=== PATIENT | female | born 1955 | race Caucasian/White ===

== ENCOUNTER 2021-03-14 10:48 | Day surgery (SDC) | payer MEDICARE ==
[~2021-03-14] VITALS: Ht 165.1 cm; Wt 57.1 kg
[2021-03-14] MEDS ORDERED: Norco 5-325 Ta1 EACH (12:07)
[2021-03-14] MEDS ORDERED: HYDR10 (12:08)
[2021-03-14] MEDS ORDERED: IBUP600 (12:08)
[2021-03-14] MEDS ORDERED: AMLO10 (12:08)
[2021-03-14] MEDS ORDERED: AVALIDE 300-121 EACH (12:09)
--- NOTE | 2021-03-14 13:32 | NUR ---
03/14/21 1332 Michelle Grey BUPIVACAINE 0.5 % 150 MG MIXED WITH 0.15 MG EPI PER ORDER TO CONSTITUTE BUPIVACAINE 0.5% 1:200,000 FOR INJECTION AT OPSITE BY DR ROB. 30 MLS OF THIS INJECTED.
--- NOTE | 2021-03-14 15:23 | NUR ---
03/14/21 1523 Julia Ramirez CHART STATES OXYCODONE ALLERGY. PT STATES SHE HAS TAKEN PERCOCET WITHOUT PROBLEMS. OK RECEIVING PO PERCOCET AND OK WITH PRESCRIPTION FOR PERCOCET FOR HOME.
== END 2021-03-14 15:42 | disposition home or self-care (01) ==
LOC: ORSCSDS 10:48
PROVIDERS: Podiatrist Foot & Ankle Surgery
PROC: 0QSJ04Z Reposition Right Fibula with Internal Fixation Device, Open Approach (ICD-10-PCS; principal; 2021-03-14 12:30)
DX: S82.852A Displaced trimalleolar fracture of left lower leg, initial encounter for closed fracture (principal); F41.9 Anxiety disorder, unspecified; I10 Essential (primary) hypertension; Z79.899 Other long term (current) drug therapy
CPT/HCPCS: A9270; C1713; J0690; J1100; J1885; J2250; J2405; J2704; J3010; J7120

== ENCOUNTER 2022-10-12 20:34 | Emergency (ER) | payer MEDICARE, OTHER ==
[~2022-10-12] VITALS: Ht 165.1 cm; Wt 58.1 kg
[~2022-10-12 20:34] MED LIST: AMLO10; AMLO5 PO; AVALIDE 300-121 EACH; HYDR10; IBUP600; NITR100CA PO; Norco 5-325 Ta1 EACH; OMEP20ER PO
[2022-10-12 21:53] VITALS: BP 164/108
[2022-10-12] MEDS ORDERED: HYDROCODONE-AC1 EA10 PO (22:37)
== END 2022-10-12 22:57 | disposition home or self-care (01) ==
LOC: ER 20:34
DX: S81.812A Laceration without foreign body, left lower leg, initial encounter (principal); I10 Essential (primary) hypertension; K21.9 Gastro-esophageal reflux disease without esophagitis; Z88.8 Allergy status to other drugs, medicaments and biological substances; Z88.5 Allergy status to narcotic agent; Z79.899 Other long term (current) drug therapy; W18.30XA Fall on same level, unspecified, initial encounter; Y92.009 Unspecified place in unspecified non-institutional (private) residence as the place of occurrence of the external cause
CPT/HCPCS: 73590; A9270

== ENCOUNTER → 2023-05-04 | Outpatient (CLI) | payer MEDICARE, OTHER ==
[~2023-05-04] MED LIST changes: +HYDROCODONE-AC1 EA10 PO
== END ==
LOC: LAB 11:25 → LAB SHORT 11:25
DX: N39.0 Urinary tract infection, site not specified (principal)
CPT/HCPCS: 87077; 87086; 87186

== ENCOUNTER 2023-11-24 12:53 | Emergency (ER) | payer MEDICARE, OTHER ==
[~2023-11-24] VITALS: Ht 165.1 cm; Wt 54.4 kg
[2023-11-24 13:30] LABS: BASOPHILS ABSOLUTE AUTO 0.05 K/mm3 (0.00-0.23); BASOPHILS PERCENT AUTO 1 % (0-2); EOSINOPHILS ABSOLUTE AUTO 0.06 K/mm3 (0.00-0.68); EOSINOPHILS PERCENT AUTO 1 % (0-6); Hematocrit 41.7 % (33.0-51.0); Hemoglobin 13.7 g/dL (11.5-16.0); IMMATURE GRAN ABSOLUTE AUTO 0.03 K/mm3 (0.00-0.10); IMMATURE GRAN PERCENT AUTO 0 % (0-1); LYMPHOCYTES ABSOLUTE AUTO 1.61 K/mm3 (0.84-5.20); LYMPHOCYTES PERCENT AUTO 24 % (21-46); MONOCYTES ABSOLUTE AUTO 0.63 K/mm3 (0.16-1.47); MONOCYTES PERCENT AUTO 9 % (4-13); Mean Corpuscular HGB 30.6 pg (26.0-34.0); Mean Corpuscular HGB Conc 32.9 g/dL (31.5-36.5); Mean Corpuscular Volume 93 fL (80-100); Mean Platelet Volume 9.2 fL (9.1-12.4); NEUTROPHILS ABSOLUTE AUTO 4.46 K/mm3 (1.96-9.15); NEUTROPHILS PERCENT AUTO 65 % (41-73); Platelet Count 314 K/mm3 (150-400); RDW Coefficient Variation 12.4 % (11.7-14.2); RDW Standard Deviation 42.8 fL (35.1-46.3); Red Blood Cell Count 4.48 M/mm3 (3.80-5.20); White Blood Cell Count 6.84 K/mm3 (4.00-11.30)
[2023-11-24 13:44] LABS: Albumin/Globulin Ratio 1.1 (0.8-1.8); Bilirubin, Total 0.8 mg/dL (0.1-1.0); Bun/Creatinine Ratio 21.7 (12.0-20.0); Calcium, Blood 9.6 mg/dL (8.5-10.1); Creatinine, Blood 0.97 mg/dL (0.40-1.00); Globulin, Blood 3.8 g/dL (2.2-4.0); Potassium, Blood 3.8 mmol/L (3.5-5.5); Total Protein, Blood 7.8 g/dL (6.4-8.2)
[2023-11-24 14:26] LABS: International Normalized Ratio 0.91; Prothrombin Time Results 9.8 Sec (9.7-11.5)
[2023-11-24] MEDS ORDERED: AMLODIPINE BESY10 MG PO (14:42)
[2023-11-24] MEDS ORDERED: LOSA50 PO (14:42)
[2023-11-24] MEDS ORDERED: OMEPRAZOLE MAGN20 M1 (14:42)
[2023-11-24] MEDS ORDERED: ATOR40TA PO (14:42)
[2023-11-24 16:00] VITALS: BP 129/82
== END 2023-11-24 15:58 | disposition home or self-care (01) ==
LOC: ER 12:53
PROVIDERS: Student in an Organized Health Care Education/Training Program
DX: R47.81 Slurred speech (principal); K21.9 Gastro-esophageal reflux disease without esophagitis; I10 Essential (primary) hypertension; Z88.5 Allergy status to narcotic agent; Z88.8 Allergy status to other drugs, medicaments and biological substances
CPT/HCPCS: 70450; 70496; 70498; 80053; 85025; 85610; 85730; 86850; 86900; 86901; 93005; 93010; 99285-25; Q9967